=== PATIENT | female | born 1970 | race Caucasian/White ===

== ENCOUNTER 2018-07-28 10:28 | Day surgery (SDC) | payer BC ==
[2018-07-28] MEDS ORDERED: Lactated Ringers 1000 ML Bag* 1,000 ML IV ONE (10:32)
[2018-07-28] MEDS ORDERED: Morphine 10 MG/ML VIAL (1 ml) IV ONE (10:45)
[2018-07-28] MEDS ORDERED: Ondansetron INJ* 2 MG/ML VIAL IV ONE (10:45)
[2018-07-28] MEDS ORDERED: NS 0.9% 1000 ML** 1,000 ML IV SCH (10:45)
--- NOTE | 2018-07-28 10:56 | ED ---
Abdominal Pain/Female - HPI Summary HPI Summary: The patient is a 48 y/o F presenting to [facility] with a chief complaint of LLQ and left flank pain that radiates to the bilateral low back worse on the left side onset yesterday. In June 2018, she visited [facility] for abd pain and CT revealed intussusception. She has been following up with Dr. Hauser, who she notified of her symptoms today, and he recommended she come here where he will see her. She additionally c/o nausea with vomiting starting today. She last ate yesterday. The sharp pain is currently rated 8/10 in severity. There are no aggravating or alleviating factors. Hx of DM, controlled by medication, no hx of HTN but she notes that her BP has been increased over the last few days when she visited her PCP. - History of Current Complaint Chief Complaint: EDAbdPain Stated Complaint: DR REQUESTED PT TO MEET HIM AT [facility] PT Time Seen by Provider: 07/28/18 10:29 Hx Obtained From: Patient Hx Last Menstrual Period: tubal Onset/Duration: Sudden Onset, Lasting Hours - yesterday, Still Present Timing: Hours Severity Initially: Moderate Severity Currently: Severe Pain Intensity: 8 Pain Scale Used: 0-10 Numeric Location: Discrete At: LLQ, Flank - left Radiates: Yes Radiates to: Back - bilateral but worse on left Character: Sharp Aggravating Factor(s): Nothing Alleviating Factor(s): Nothing Associated Signs and Symptoms: Positive: Back Pain - bilateral but worse on left , Nausea, Vomiting Allergies/Adverse Reactions: Allergies Allergy/AdvReac Type Severity Reaction Status Date / Time No Known Allergies Allergy Verified 07/28/18 10:33 Home Medications: Home Medications metFORMIN* [Glucophage 1000 MG TAB *] 1,000 mg PO BID 07/28/18 [History Confirmed 07/28/18] PMH/Surg Hx/FS Hx/Imm Hx Endocrine/Hematology History: Reports: Hx Diabetes - II, Hx Thyroid Disease - no medication at this time, Hx Anemia Cardiovascular History: Denies: Hx Hypertension Respiratory History: Denies: Hx Asthma, Hx Chronic Obstructive Pulmonary Disease (COPD) GI History: Reports: Other GI Disorders - appendectomy Denies: Hx Ulcer History: Reports: Other Problems/Disorders - bilateral tubal ligation Musculoskeletal History: Reports: Hx Arthritis Sensory History: Denies: Hx Contacts or Glasses, Hx Hearing Aid Opthamlomology History: Denies: Hx Contacts or Glasses Neurological History: Reports: Hx Headaches - Surgical History Surgery Procedure, Year, and Place: zachary-en-y - 2009. tubal ligation. appe Hx Anesthesia Reactions: No Infectious Disease History: No Infectious Disease History: Denies: Hx Clostridium Difficile, Hx Hepatitis, Hx Human Immunodeficiency Virus (HIV), Hx of Known/Suspected MRSA, Hx Shingles, Hx Tuberculosis, History Other Infectious Disease, Traveled Outside the [place] in Last 30 Days - Family History Known Family History: Positive: Cardiac Disease, Diabetes, Other - Cancer - Social History Alcohol Use: Occasionally Substance Use Type: Reports: None Hx Tobacco Use: Yes Smoking Status (MU): Former Smoker Amount Used/How Often: quit 20 years ago Review of Systems Positive: Abdominal Pain - LLQ, Vomiting, Nausea Positive: flank pain - left Positive: Other - low back pain worse on left from abd pain All Other Systems Reviewed And Are Negative: Yes Physical Exam - Summary Physical Exam Summary: VITAL SIGNS: Reviewed. GENERAL: Patient is a well-developed and nourished female who is lying comfortable in the stretcher. Patient is not in any acute respiratory distress. HEAD AND FACE: Normocephalic and atraumatic. EYES: PERRLA, EOMI x 2, No injected conjunctiva. EARS: Hearing grossly intact. Ear canals and tympanic membranes are WNL. MOUTH: Oropharynx within normal limits. NECK: Supple, trachea is midline, no adenopathy, no JVD. CHEST: Symmetric, no tenderness at palpation LUNGS: Clear to auscultation bilaterally. No wheezing or crackles. CVS: RRR, S1 and S2 present, no murmurs or gallops appreciated. ABDOMEN: Soft, tender in the LLQ and left flank. No signs of distention. Positive bowel sounds. No rebound no guarding, and no masses palpated. No abdominal bruit or pulsations. EXTREMITIES: FROM in all major joints, no edema, no cyanosis or clubbing. NEURO: Alert and oriented x 3. No acute neurological deficits. Speech is normal. SKIN: Dry and warm Triage Information Reviewed: Yes Vital Signs On Initial Exam: Initial Vitals Temp Pulse Resp BP Pulse Ox 97.1 F 65 16 194/68 100 07/28/18 10:30 07/28/18 10:30 07/28/18 10:30 07/28/18 10:30 07/28/18 10:30 Vital Signs Reviewed: Yes Diagnostics - Vital Signs Vital Signs Temp Pulse Resp BP Pulse Ox 07/28/18 10:30 97.1 F 65 16 194/68 100 - Laboratory Result Diagrams: 07/28/18 12:15 07/28/18 12:15 Lab Statement: Any lab studies that have been ordered have been reviewed, and results considered in the medical decision making process. - Radiology CXR Radiology Interpretation Completed By: Radiologist Summary of Radiographic Findings: No acute cardiopulmonary process. ED physician has reviewed this report. - CT Abd/Pel CT CT Interpretation Completed By: Radiologist Summary of CT Findings: No obstruction. No hydronephrosis or nephrolithiasis. No acute noncontrast CT pathology of the visualized abdomen or pelvis. ED physician has reviewed this report. - EKG 10:44 Cardiac Rate: NL - 67 BPM EKG Rhythm: Sinus Rhythm EKG Comparison: No Significant Change - Similar to 12/22/16. Summary of EKG Findings: No ST elevations. Re-Evaluation - Re-Evaluation First Eval Re-Evaluation Time: 12:25 Change: Unchanged Comment: I spoke with the patient concerning how she is feeling now. Abdominal Pain Fem Course/Dx - Course Course Of Treatment: This patient is a 48-year-old female who presents to the emergency department with chief complaint of left lower quadrant and left flank pain. The patient was sent by Dr. Hauser for evaluation of an intussusception. The patient reports the pain is 9 out of 10. Mild nausea. In the ED course the patient was given IV fluids, Zofran for nausea, and morphine for pain. Blood work without any significant abnormality except for glucose of 104. EKG is a normal sinus rhythm without ST elevation. Chest x-ray shows no acute pathology. Abdominopelvic CT impression: No obstruction. No hydronephrosis or nephrolithiasis. No acute pathology of visualized abdomen or pelvis. Patient was assessed by Dr. Hauser and he accepted patient for admission. - Diagnoses Provider Diagnoses: Intussusception, Lower abdominal pain - Provider Notifications Discussed Care Of Patient With: Toyin Edward - surgery Time Discussed With Above Provider: 10:50 Instructed by Provider To: Other - I consulted with Dr. Edward, surgery, at concerning patients situation and future consultation with Dr. Hauser, who will come see the patient in the ED. At 11:45, Dr. Edward told us that Dr. Hauser would be coming to talk to the patient soon. Dr. Hauser is in the ED to see the patient at 12:10. Discharge - Sign-Out/Discharge Documenting (check all that apply): Patient Departure - Patient is admitted to [facility] for further care. All imaging exams completed and their final reports reviewed: Yes Patient Received Moderate/Deep Sedation with Procedure: No - Discharge Plan Condition: Stable Disposition: ADMITTED TO [facility] Referrals: El TORRES,Heide Ching [Primary Care Provider] - - Billing Disposition and Condition Condition: STABLE Disposition: Admitted to [facility] - Attestation Statements Document Initiated by Umesh: Yes Documenting Scribe: Lee Ann Ch Provider For Whom Umesh is Documenting (Include Credential): Dr. Carlos Urbina MD Scribe Attestation: Lee Ann Beckham scribed for Dr. Carlos Urbina MD on 07/28/18 at 1330. Scribe Documentation Reviewed: Yes Provider Attestation: The documentation as recorded by the Lee Ann alicia accurately reflects the service I personally performed and the decisions made by me, Dr. Carlos Urbina MD Status of Scribzahida Document: Ready
--- OUTSIDE RECORDS SUMMARY | 2018-07-28 10:58 | XMS REPORT | Continuity of Care Document ---
:1970 External Reference #:[id number] Author Name Opal Vigil Care Team Providers Name Role Phone Heide Gallegos MD Primary Care Physician Unavailable Payers Date Identification Numbers Payment Provider Subscriber Expires: 2016 Policy Number: [id number] Drew Brown PayID: [id number] [address] [place] [address] Policy Number: [id number] [facility] Jaleesa Brown PayID: [id number] [address] [address] [place] [address] Advance Directives Description No Information Available Problems Description No Information Family History Date Family Member(s) Observation Comments Father Diabetes Type II Father Renal Cell Cancer Mother due to Diabetes () Siblings 2 1 brother, - at age 43 ID, hx of CKD and diabetes, 1 sister Social History Type Date Description Comments Sex Unknown Marital Status Lives With Lives With Children ETOH Use Denies alcohol use Tobacco Use Start: Unknown End: Patient is a former smoker quit 1997 Unknown Recreational Drug Use Denies Drug Use Smoking Status Reviewed: 07/20/18 Patient is a former smoker quit 1997 Exercise Type/Frequency Does not exercise Allergies, Adverse Reactions, Alerts Description No Known Drug Allergies Medications Medication Date Status Form Strength Qnty SIG Indications Ordering Provider Metformin HCL / Active Tablets ER 1000mg 1 by mouth Unknown ER (Mod) 0000 24HR twice a day Multivitamin & / Active Liquid 1 teaspoon Unknown Mineral 0000 once a day Magnesium 00// Active Capsules otc once a Unknown 0000 day Novofine / Active Misc 32G X 6 mm use every Unknown 0000 day or as directed Victoza / Hx Solution 18mg/3ML inject Unknown 0000 - Pen-Inject 1.8mg 07/19/ daily once 2019 daily Microgestin / Hx Tablets 1.5-30mg-m 1 by mouth Unknown 1.5 0000 - cg every day 2018 Immunizations Description No Information Available Vital Signs Date Vital Result Comment 07/20/2018 9:47am Height 63 inches 5'3" Weight 196.00 lb w/ shoes Heart Rate 73 /min BP Systolic Sitting 156 mmHg BP Diastolic Sitting 98 mmHg BMI (Body Mass Index) 34.7 kg/m2 Results Description No Information Available Procedures Description No Information Available Encounters Type Date Location Provider Dx Diagnosis Office Visit 12/23/2016 Surgical Toyin Zhu R10.12 Left upper quadrant 7:00a [facility] pain [address] Crew Member Office Visit 12/22/2016 Surgical Kingsley Ramey K56.1 Intussusception 7:00a [facility] Plan of Treatment 07/20/2018 - Stone Grossman MDE04.2 Nontoxic multinodular goiterNew Xrays:US Thyroid, Scheduled: 07/15/19Follow up:return in 1 year after ultrasoundInstructions:1. Return in 1 year for ultrasound and follow-up visit. 2. Recheck thyroid function tests only if symptoms worsen.Z98.84 Bariatric surgery [id number] Type 2 diabetes mellitus with hyperglycemia
[2018-07-28 12:38] LABS: ABS Basophils 0 10^3/ul (0-0.2); ABS Eosinophils 0.1 10^3/ul (0-0.6); ABS Lymphocytes 1.8 10^3/ul (1.0-4.8); ABS Monocytes 0.2 10^3/ul (0-0.8); ABS Neutrophils 3.2 10^3/ul (1.5-7.7); ABS Nucleated RBC 0 10^3/ul; Eosinophil % 1.8 %; Hematocrit 40 % (33-41); Hemoglobin 12.9 g/dL (12.0-16.0); Lymphocyte % 33.6 %; Mean Corpuscular HGB Conc 32 g/dL (31-36); Mean Corpuscular Hemoglobin 28 pg (27-31); Mean Corpuscular Volume 88 fL (80-97); Mean Platelet Volume 9.2 fL (7.4-10.4); Nucleated Red Blood Cells % 0.1; Platelet Count 260 10^3/uL (150-450); Red Blood Count 4.57 10^6 /uL (3.70-4.87); Red Cell Distribution Width 14 % (10.5-15); White Blood Count 5.5 10^3/uL (3.5-10.8)
[2018-07-28 12:41] LABS: Albumin 4.2 g/dL (3.2-5.2); Anion Gap 10 mmol/L (2-11); CO2 Carbon Dioxide 23 mmol/L (22-32); Calcium 9.3 mg/dL (8.6-10.3); Chloride 105 mmol/L (101-111); Sodium 138 mmol/L (135-145)
[2018-07-28 12:47] LABS: ALT 13 U/L (7-52); AST 18 U/L (13-39); Albumin/Globulin Ratio 1.3 (1-3); Alkaline Phosphatase 64 U/L (34-104); BUN/Creatinine Ratio 17.9 (8-20); Blood Urea Nitrogen 10 mg/dL (6-24); C Reactive Protein < 1.00 mg/L (<8.01); EGFR Non-African American 116.5 (>60); Globulin 3.3 g/dL (2-4); Glucose 108 mg/dL (70-100); Total Protein 7.5 g/dL (6.4-8.9)
[2018-07-28] MEDS ORDERED: ceFAZolin 2 GM in NS PREMIX(*) 2 GM/100 ML BAG IVPB ONE (13:00)
[2018-07-28] MEDS ORDERED: Sugammadex * 200 MG/2 ML VIAL IV PUSH ONE (13:09)
[2018-07-28] MEDS ORDERED: Rocuronium* 10 MG/ML VIAL ONE ×2 (13:09→14:36)
[2018-07-28] MEDS ORDERED: Succinylcholine* 20 MG/ML 10 ML VIAL ONE (13:09)
[2018-07-28] MEDS ORDERED: Lidocaine 2% PF * 5 ML VIAL ONE (13:10)
[2018-07-28] MEDS ORDERED: fentaNYL* 50 MCG/ML 2 ML VIAL (100 MCG VIAL) ONE ×3 (13:10→15:44)
[2018-07-28] MEDS ORDERED: Propofol* 10 MG/ML 20 ML BTL ONE (13:10)
[2018-07-28] MEDS ORDERED: Ondansetron INJ* 2 MG/ML VIAL ONE (13:10)
[2018-07-28] MEDS ORDERED: Metoclopramide IV* 5 MG/ML 2 ML VIAL ONE (13:14)
[2018-07-28] MEDS ORDERED: Bupivacaine 0.25% W/EPI* 10 ML SDV ONE (13:21)
[2018-07-28] MEDS ORDERED: Famotidine IV* 10 MG/ML 2 ML (20 mg) ONE (13:23)
[2018-07-28] MEDS ORDERED: Scopolamine 1.5 mg* PATCH ONE (13:23)
--- NOTE | 2018-07-28 13:30 | PN ---
Progress Note - Progress Note Date of Service: 07/28/18 Note: PREOP NOTE: This is a 48 yo F know to me from recent visit at [facility] where she presented for evaluation of recurrent intussusception of SB s/p LRYGB in 2007 in [place]. She was admitted at [facility] in 2016 and was seen at [facility] in Jun 2018 for the same issue. CT scans at the time were suggestive of intussusception a the JJ anastamosis. At the time I saw her on 07/26, she had no significant pain and I felt evaluation for nephrolithiasis was warranted. She reports no hematuria or dysuria at this time. Her pain is worse since yesterday and is in bilateral flanks and associated with nausea. She has no fever. She was directed to the ER today when she called [facility] for advice. She has normal labs and noncontrast CT of the abd/pel showed no kidney stones. At this time I have recommended a diagnostic laparoscopy. I discussed the procedure, indications, risks, benefits and alternatives with the patient, including the option of no treatment. Risks have been explained including, not limited to: bleeding, infection, pain, scarring, blood clot, pneumonia, visceral injury, need for laparotomy, and risks of general anesthesia. All questions have been answered. She states understanding and agrees to proceed.
--- NOTE | 2018-07-28 13:32 | HP ---
CC: Dr. Carlos Hauser; Dr. Heide Gallegos at [facility]* PREOPERATIVE HISTORY AND PHYSICAL: DATE OF ADMISSION: 07/28/18 ATTENDING SURGEON: Dr. Carlos Hauser* (dictated by Toyin Edward NP). This patient was seen in [facility] Emergency Department on 07/28/18. CHIEF COMPLAINT: Worsening abdominal pain. HISTORY OF PRESENT ILLNESS: The patient is a 48-year-old female who is status post laparoscopic gastric bypass in May 2015 in [place]. She had an admission to [facility] December 2016 with possible intussusception of the jejunojejunostomy and no surgical intervention was indicated at that time. She was discharged home on clear liquids and omeprazole and her diagnosis was thought to be gastroenteritis. More recently, she saw Dr. Hauser at [facility] on 07/26/18, complaining of left-sided abdominal pain with some radiation to the back. Dr. Hauser planned to obtain further testing, but the patient called today stating that her abdominal pain was much worse and was radiating to her back and was rated 9/10. She has associated nausea and had 1 episode of vomiting at home. She reports that her abdominal pain is on both right and left mid abdomen, left greater than right, and the pain radiates into both flank regions. She denies any dysuria; her last bowel movement was 2 days ago. She denies any diarrhea; she is a type 2 diabetic and her fingerstick blood sugar this morning at home was 149; she states that one her children is homesick with a temperature of 104. A noncontrast CT of the abdomen and pelvis has been ordered as well as CBC, comprehensive metabolic profile, lactic acid, and CRP and we are awaiting those results. She last ate solids at 7 p.m. yesterday and last oral fluids was 8 ounces of water at 10 o'clock this morning. PAST MEDICAL HISTORY: Significant for: 1. Morbid obesity. She states that her highest weight was 275 pounds and currently she weighs 192 pounds. 2. Type 2 diabetes. 3. Iron deficiency anemia. 4. Hypothyroidism and/or thyroid nodule. PAST SURGICAL HISTORY: 1. Laparoscopic Miguel Ángel-en-Y gastric bypass in [place], 2015. 2. Laparoscopic appendectomy [place] [address] Hauser. 3. section x2. 4. Tubal ligation. CURRENT MEDICATIONS: 1. Metformin 1000 mg p.o. b.i.d. and she did take a dose at 4 o'clock this morning. 2. Multivitamin and mineral combination daily. 3. Magnesium supplement daily. 4. Glucosamine supplement daily. ALLERGIES: No known drug allergies. FAMILY HISTORY: Negative for anesthesia complications, bleeding tendencies, or clotting disorders. SOCIAL HISTORY: She is and has 2 older grown children and currently has foster children; she is a student; she quit smoking around age 20 and denies the use of tobacco or other recreational drugs. REVIEW OF SYSTEMS: Constitutional: No fevers at home. No excessive fatigue. No unintended weight loss. Cardiovascular: No chest pain, palpitations, or history of heart attack or heart murmur. Respiratory: No history of asthma. No chronic cough or shortness of breath. Gastrointestinal: As described in history of present illness. No additions. Genitourinary: No dysuria. No history of kidney stones. SURGICAL GARMENT INSPECTOR: Breast exam and mammogram done within the past 2 years. No problems reported. Pelvic: Exam has been within the last 2 years with normal Pap smear at that time and no interval problems reported; last menstrual period April 2018; she is status post tubal ligation. Musculoskeletal: Persistent chronic knee pain. Endocrine: Type 2 diabetes. Fingerstick this morning at home was 149 and in the emergency department fingerstick was 104. General: No history of deep vein thrombosis or pulmonary embolism. No previous anesthesia complications. No history of blood transfusions. PHYSICAL EXAMINATION GENERAL SURVEY: The patient is a 48-year-old overweight female in no acute distress. VITAL SIGNS: Height 5 feet 3 inches, weight 192 pounds. Body mass index 33.7. Blood pressure 164/80, pulse 60 and regular, respiratory rate 18, temperature 98 tympanic, and O2 saturation on room air 100%. HEENT: Benign. NECK: Supple. No cervical lymphadenopathy. LUNGS: Breath sounds bilaterally clear and equal. HEART: Regular rate and rhythm. No murmurs or rubs appreciated. ABDOMEN: Well-healed surgical scars, hypoactive bowel sounds. Nondistended. Soft; tender to palpation in both midabdominal regions left greater than right. No guarding. No obvious masses. BACK: No CVA tenderness. MUSCULOSKELETAL: Full range of motion. No edema or skin ulcerations. NEUROLOGIC: Alert and oriented x3, cooperative; she did have a brief episode in the emergency department where she felt like she was going to blackout, but she remained conscious. Her blood sugar at that time was 104 and the episode quickly resolved. SKIN: Warm, dry, intact. IMPRESSION: Persistent abdominal pain radiating to her back bilaterally, status post laparoscopic gastric bypass and history of intussusception on previous admission in 2017. PLAN: Noncontrast CT of the abdomen and pelvis has been done and reviewed by Dr. Hauser. We are awaiting lab tests. She is being resuscitated with IV fluids and kept n.p.o. She will possibly go to the OR today for diagnostic laparoscopy and further planning will be by Dr. Hauser. TIME SPENT: Seventy-five minutes with greater than 50% in [id number] history taking and coordination of care. NILSA EDWARD NP [id number]/CPS #: [id number] ANA
[2018-07-28] MEDS ORDERED: Ketorolac INJ* 30 MG/ML 1 ML VIAL ONE (14:24)
[2018-07-28] MEDS ORDERED: HYDROmorphone INJ1* 1 MG/ML SYRINGE IV PRN (15:23)
[2018-07-28] MEDS ORDERED: fentaNYL* 50 MCG/ML 2 ML VIAL (100 MCG VIAL) IV PRN (15:23)
[2018-07-28] MEDS ORDERED: Naloxone* 0.4 MG/ML 1 ML VIAL IV PRN (15:23)
[2018-07-28] MEDS ORDERED: DiMENhydriNATE IV* 50 MG/ML VIAL IV PUSH PRN (15:23)
--- NOTE | 2018-07-28 15:39 | OP ---
Operative Report - Blank - Operative Report Date of Operation: 07/28/18 Note: Brief Operative Note Preop Dx: Possible intussusception Postop Dx: intraabdominal adhesions; closure of internal hernia Procedure: diagnostic laparoscopy; lysis of adhesions; closure of internal hernia Anesthesia: GET Surgeon: Analisa Security Sales Consultant: [facility] Fluids: 1000 ml RL EBL: < 20 ml Specimen: none Drains: none Findings: dictated
[2018-07-28 17:04] VITALS: BP 127/69
--- NOTE | 2018-07-28 21:08 | OP ---
CC: Heide Gallegos MD; [facility] * DATE OF OPERATION: 07/28/18 - [facility] DATE OF : 74 SURGEON: Carlos Hauser MD. EMBROIDERY ASSISTANT: [facility]. ANESTHESIOLOGIST: Raheem Carrizales MD. ANESTHESIA: General endotracheal. PRE-OP DIAGNOSES: Bilateral flank pain and abdominal pain, status post laparoscopic Miguel Ángel-en-Y gastric bypass. POST-OP DIAGNOSES: Bilateral flank pain and abdominal pain, status post laparoscopic Miguel Ángel-en-Y gastric bypass and intraperitoneal adhesions. OPERATIVE PROCEDURE: Laparoscopy. Laparoscopic lysis of adhesions. Suture closure of internal hernia. ESTIMATED BLOOD LOSS: Minimal. IV FLUIDS: Crystalloids. SPECIMENS: None. DRAINS: None. COMPLICATIONS: None. COUNTS: Instrument, needle, and sponge count correct. DESCRIPTION OF PROCEDURE: The patient was brought to the operating room and placed on the table supine. Sequential compression devices were placed on both lower extremities. General anesthesia was administered. She was administered appropriate intravenous antibiotics. She was prepped and draped in the usual sterile fashion. A time-out was performed. Local anesthetic was infiltrated into skin and soft tissue prior to making each incision. Entry into the abdomen was through an infraumbilical vertical incision using an open technique. After accessing the peritoneal cavity, a 12- mm trocar was placed. Carbon dioxide was insufflated to a pressure of 15 mmHg. Under direct visualization, 5-mm trocars were placed in the left lower quadrant and right upper quadrant. Inspection of the abdominal cavity revealed normal-appearing small bowel with no evidence of abnormal dilation. Normal- appearing liver and gallbladder. There was omental adhesion to the lower midline of the abdomen. LigaSure was used to lyse the adhesions of the omentum to the anterior midline completely freeing this. The exploration then proceeded with identification of the gastric pouch and identification of the gastrojejunal anastomosis. This appeared normal. The Miguel Ángel limb was followed distally to the jejunojejunostomy. The adhesions of omentum and and transverse colon and mesentery to this area were taken down sharply. Clear visualization of the jejunojejunostomy did not reveal any evidence of intussusception. The bowel was run proximally to the ligament of Treitz along the course of the bilio-pancreatic limb and no abnormalities were identified there. There did appear to be a small internal hernia defect between the mesentery of the jejunum at the jejunojejunostomy and the transverse colon. There was no bowel within this area, however. The small bowel was run distally from the jejunojejunostomy to the ileocecal valve and back again. The appendix was noted to be absent. Gallbladder was inspected and noted to be normal. No abnormal dilation or masses noted within the small intestine. At this point, it was elected to close the previously mentioned internal hernia suturing the jejunum to the peritoneum of the transverse colon mesentery. This was performed using 3 [id number]-yz-dydre sutures with 2-0 silk. At this point, ports were removed under direct visualization. There was some bleeding from the left lower quadrant 5-mm port site and therefore an Endo Close was used with 0 Vicryl to close the incision and achieve hemostasis. Remaining ports were removed uneventfully. Infraumbilical wound was closed with 0 Vicryl in [id number] fashion to approximate the fascia. Skin incisions were closed with 4-0 Monocryl in subcuticular fashion. Steri-Strips were applied. The patient tolerated the procedure well. The patient was extubated uneventfully, transferred to recovery room in stable condition. [id number] #: [id number] [facility]
== END 2018-07-28 17:09 | disposition home or self-care (01) ==
LOC: OR 10:28
PROVIDERS: ATTEND Surgery
DX: K66.0 Peritoneal adhesions (postprocedural) (postinfection) (principal); K45.8 Other specified abdominal hernia without obstruction or gangrene; R10.9 Unspecified abdominal pain; R11.2 Nausea with vomiting, unspecified; Z98.84 Bariatric surgery status; E11.9 Type 2 diabetes mellitus without complications; Z79.84 Long term (current) use of oral hypoglycemic drugs; R94.31 Abnormal electrocardiogram [ECG] [EKG]; Z87.891 Personal history of nicotine dependence
CPT/HCPCS: 36415; 71045; 74176; 80053; 85025; 86140; 93005; 99284; A9270-GY; J0330; J0690; J1885; J2270; J2405; J2704; J2765; J3010

== ENCOUNTER 2018-12-19 09:15 | Emergency (ER) | payer BC ==
[2018-12-19 09:56] LABS: ABS Eosinophils 0.1 10^3/ul (0-0.6); ABS Lymphocytes 2.3 10^3/ul (1.0-4.8); ABS Monocytes 0.4 10^3/ul (0-0.8); ABS Neutrophils 4.5 10^3/ul (1.5-7.7); Eosinophil % 1.1 %; Hematocrit 40 % (35-47); Hemoglobin 13.5 g/dL (12.0-16.0); Lymphocyte % 31.6 %; Mean Corpuscular HGB Conc 34 g/dL (31-36); Mean Corpuscular Hemoglobin 31 pg (27-31); Mean Corpuscular Volume 90 fL (80-97); Mean Platelet Volume 9.2 fL (7.4-10.4); Nucleated Red Blood Cells % 0.1; Platelet Count 286 10^3/uL (150-450); Red Blood Count 4.37 10^6 /uL (3.70-4.87); Red Cell Distribution Width 16 % (10-15); White Blood Count 7.3 10^3/uL (3.5-10.8)
[2018-12-19 10:03] LABS: INR 0.94 (0.82-1.09)
[2018-12-19 10:19] LABS: Albumin/Globulin Ratio 1.3 (1-3); BUN/Creatinine Ratio 21.3 (8-20); Calcium 8.7 mg/dL (8.6-10.3); EGFR African American 127.8 (>60); EGFR Non-African American 105.6 (>60); Globulin 3.1 g/dL (2-4); Potassium 3.9 mmol/L (3.5-5.0); Total Bilirubin 0.3 mg/dL (0.2-1.0); Total Protein 7.1 g/dL (6.4-8.9)
--- NOTE | 2018-12-19 11:23 | ED ---
HPI Chest Pain - HPI Summary HPI Summary: This pt is a 48 Y/O F presenting to [facility] accompanied by her with a CC of midsternal CP. She states that the CP has been present since 12/15/18 but it worsened today when it radiated into her L arm and L neck since 0800 this morning. 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 She stated that the pain is described as tightness and electric and is rated a 5/10 in severity. She states that she has had a recent stress increase at home. She stated that she has been shaky and anxious at home. She denies any SOB, palpitations, N/V, abdominal pain, fevers, headaches, and weakness. She stated no alleviating factors. She has a pertinent FHx of diabetes type 1, and her mother had a NY at 38 Y/O. She was Dx with anxiety by Dr. De La Cruz and started on Celexa 2 weeks ago. She also stated that she has an overactive thyroid. - History of Current Complaint Chief Complaint: EDChestPainROMI Time Seen by Provider: 12/19/18 09:39 Hx Obtained From: Patient Hx Last Menstrual Period: tubal Onset/Duration: Started Days Ago - 4, Still Present, Worse Since - this morning at 0800 Timing: Constant Initial Severity: Mild Current Severity: Moderate Pain Intensity: 5 Pain Scale Used: 0-10 Numeric Chest Pain Location: Mid Sternal Chest Pain Radiates: Yes Chest Pain Radiates To:: Arm - L, Neck - L Character: Tightness, Other: - electric Aggravating Factor(s): Exertion, Other: - recent stress, anxiety Alleviating Factor(s): Nothing Associated Signs and Symptoms: Positive: Negative - headaches, Chest Pain, Anxiety, Recent Stress, Numbness - L arm. Negative: Weakness, Shortness of Breath, Fever, Nausea, Palpitations, Abdominal Pain, Vomiting - Risk Factors AMI/ACS Risk Factors: Family History - Diabetes, NY in mother at 38 Y/O - Additional Pertinent History Primary Care Physician: [id number] - Allergy/Home Medications Allergies/Adverse Reactions: Allergies Allergy/AdvReac Type Severity Reaction Status Date / Time No Known Allergies Allergy Verified 12/19/18 09:39 Home Medications: Home Medications Citalopram Hydrobromide [Citalopram HBr] 1 tab PO DAILY 12/19/18 [History Confirmed 12/19/18] Iferex 150 Forte Capsule 1 tab PO DAILY 12/19/18 [History Confirmed 12/19/18] PMH/Surg Hx/FS Hx/Imm Hx Previously Healthy: Yes Endocrine/Hematology History: Reports: Hx Diabetes - II, Hx Thyroid Disease - no medication at this time, Hx Anemia Cardiovascular History: Denies: Hx Hypertension Respiratory History: Denies: Hx Asthma, Hx Chronic Obstructive Pulmonary Disease (COPD) GI History: Reports: Other GI Disorders - appendectomy Denies: Hx Ulcer History: Reports: Other Problems/Disorders - bilateral tubal ligation Musculoskeletal History: Reports: Hx Arthritis Sensory History: Denies: Hx Contacts or Glasses, Hx Hearing Aid Opthamlomology History: Denies: Hx Contacts or Glasses Neurological History: Reports: Hx Headaches Psychiatric History: Reports: Hx Anxiety - Surgical History Surgery Procedure, Year, and Place: [email or web address] - 2008. tubal ligation. appe . Stress test before 2007, unknown exactly Hx Anesthesia Reactions: No - Immunization History Immunizations Up to Date: Yes Infectious Disease History: No Infectious Disease History: Denies: Hx Clostridium Difficile, Hx Hepatitis, Hx Human Immunodeficiency Virus (HIV), Hx of Known/Suspected MRSA, Hx Shingles, Hx Tuberculosis, History Other Infectious Disease, Traveled Outside the [place] in Last 30 Days - Family History Known Family History: Positive: None, Cardiac Disease, Diabetes, Other - Cancer - Social History Occupation: Unemployed, Works From/At Home Lives: With Family Alcohol Use: None Substance Use Type: Reports: None Hx Tobacco Use: Yes Smoking Status (MU): Former Smoker Amount Used/How Often: quit 20 years ago Review of Systems Negative: Fever Positive: Chest Pain - mid-sternal Negative: Shortness Of Breath Negative: Abdominal Pain, Vomiting, Nausea Positive: Other - L arm and L neck radiated pain Negative: Headache, Weakness All Other Systems Reviewed And Are Negative: Yes Physical Exam - Summary Physical Exam Summary: Constitutional: Well-developed, Well-nourished, Alert. (-) Distressed Skin: Warm, Dry HENT: Normocephalic; Atraumatic Eyes: Conjunctiva normal Neck: Musculoskeletal ROM normal neck. (-) JVD, (-) Stridor, (-) Nuchal rigidity Cardio: Rhythm regular, rate normal, Heart sounds normal; Intact distal pulses; Radial pulses are 2+ and symmetric. (-) Murmur Pulmonary/Chest wall: Effort normal. (-) Respiratory distress, (-) Wheezes, (-) Rales Abd: Soft, (-) tenderness, (-) Distension, (-) Guarding, (-) Rebound Musculoskeletal: (-) Edema Lymph: (-) Cervical adenopathy Neuro: Alert, Oriented x3 Psych: Mood and affect Normal Triage Information Reviewed: Yes Vital Signs On Initial Exam: Initial Vitals Temp Pulse Resp BP Pulse Ox 97.7 F 58 18 144/57 100 12/19/18 09:24 12/19/18 09:24 12/19/18 09:24 12/19/18 09:24 12/19/18 09:24 Vital Signs Reviewed: Yes Diagnostics - Vital Signs Vital Signs Temp Pulse Resp BP Pulse Ox 12/19/18 10:39 55 23 155/86 98 12/19/18 10:09 58 17 157/89 98 12/19/18 10:00 59 5 97 12/19/18 09:48 53 14 142/83 97 12/19/18 09:42 55 16 142/83 97 12/19/18 09:39 57 21 142/87 97 12/19/18 09:35 61 19 98 12/19/18 09:24 97.7 F 58 18 144/57 100 - Laboratory Lab Results: Lab Results 12/19/18 12/19/18 12/19/18 Range/Units 09:43 09:43 09:43 WBC 7.3 (3.5-10.8) 10^3/uL RBC 4.37 (3.70-4.87) 10^6 /uL Hgb 13.5 (12.0-16.0) g/dL Hct 40 (35-47) % MCV 90 (80-97) fL MCH 31 (27-31) pg MCHC 34 (31-36) g/dL RDW 16 H (10-15) % Plt Count 286 (150-450) 10^3/uL MPV 9.2 (7.4-10.4) fL Neut % (Auto) 61.1 % Lymph % (Auto) 31.6 % Pen[place]ton % (Auto) 5.6 % Eos % (Auto) 1.1 % Baso % (Auto) 0.6 % Absolute Neuts (auto) 4.5 (1.5-7.7) 10^3/ul Absolute Lymphs (auto) 2.3 (1.0-4.8) 10^3/ul Absolute Monos (auto) 0.4 (0-0.8) 10^3/ul Absolute Eos (auto) 0.1 (0-0.6) 10^3/ul Absolute Basos (auto) 0.0 (0-0.2) 10^3/ul Absolute Nucleated RBC 0.0 10^3/ul Nucleated RBC % 0.1 INR (Anticoag Therapy) 0.94 (0.82-1.09) Sodium 137 (135-145) mmol/L Potassium 3.9 (3.5-5.0) mmol/L Chloride 106 (101-111) mmol/L Carbon Dioxide 23 (22-32) mmol/L Anion Gap 8 (2-11) mmol/L BUN 13 (6-24) mg/dL Creatinine 0.61 (0.51-0.95) mg/dL Est GFR ( Amer) 127.8 (>60) Est GFR (Non-Af Amer) 105.6 (>60) BUN/Creatinine Ratio 21.3 H (8-20) Glucose 121 H (70-100) mg/dL Calcium 8.7 (8.6-10.3) mg/dL Total Bilirubin 0.30 (0.2-1.0) mg/dL AST 16 (13-39) U/L ALT 18 (7-52) U/L Alkaline Phosphatase 61 (34-104) U/L Troponin I 0.00 (<0.04) ng/mL Total Protein 7.1 (6.4-8.9) g/dL Albumin 4.0 (3.2-5.2) g/dL Globulin 3.1 (2-4) g/dL Albumin/Globulin Ratio 1.3 (1-3) TSH Pending Result Diagrams: 12/19/18 09:43 12/19/18 09:43 Lab Statement: Any lab studies that have been ordered have been reviewed, and results considered in the medical decision making process. - Radiology CXR Radiology Interpretation Completed By: Radiologist Summary of Radiographic Findings: No evidence for active cardiopulmonary disease. ED Physician has reviewed this report. - EKG 0918 Cardiac Rate: NL - 64 BPM EKG Rhythm: Sinus Rhythm ST Segment: Normal Ectopy: None Summary of EKG Findings: EKG at 0918 reveals normal sinus rhythm 64 BPM, nml axis, nml intervals. No STEMI. Q waves in V1 to V3. Interpreted by Dr. Lees at 0922 12/19/18. Re-Evaluation - Re-Evaluation First Eval Comment: second trop neg, outpatient stress test ordered. Patient feels comfortable going home and will return for worsening symptoms. Chest Pain Course/Dx - Course Course Of Treatment: 48-year-old female with a history of anxiety, strong family history of cardiac disease who presents with chest pain for 4 days. Physical exam of the well-appearing female. EKG sinus, chest x-ray negative, troponin has been normal. Chest Pain DDX: The patient is well appearing, with stable vitals. Given the patient's clinical presentation, highest on differential is atypical CP. Although less likely, differential also includes the following: --Pneumothorax: Equal breath sounds, story inconsistent since gradual onset of symptoms. CXR shows no evidence of pneumothorax. Unlikely. -- Cardiac tamponade: The history and physical are not concerning for tamponade. No Pulsus Paradoxus, no tachypnea. Unlikely. --Mediastinitis or esophageal rupture: The history is not consistent, as the patient has had no recent history of significant wretching, instrumentation, or mediastinal surgeries. Unlikely. --Aortic dissection: The patient does not describe the classical tearing chest pain radiating into the back, and the CXR does not show mediastinal widening or other signs of aortic dissection. Unlikely. --PE: Vitals wnl (not hypoxic, tachycardic or tachypneic). --ACS: The initial EKG shows no ischemic changes. The initial troponin is not elevated. Heart score - HEART Score. Based on a HEART score of 2 the patient has a low risk (<2% chance ) of major adverse cardiac event within the next 6 weeks. I explained to the patient that based on the work-up today, her risk of heart attack is low and that he/she will be discharged with outpatient follow-up. Strict return precautions were discussed regarding worsening chest pain, new / atypical pain, shortness of breath, or any other serious concerns. Patient endorsed understanding and has no questions at this time. Source --. Freedom BE, Six AJ , Marito BEVERLY, Trevor MA, Mast EG, Wiley A, Carolyne RF,. Carlos AJ, Baldomero R , Lio R, Wale SH, van Camila R, Jose TP, van asad Garrison F,. Erin MJ, Jg JM, Fabian AW, Cherry PA. A prospective validation of. the HEART score for chest pain patients at the emergency department. Int J. Cardiol. 2013 Feb 3;168(3):2153-8. 0-3: 2.5% risk of adverse cardiac event. In the HEART Score, these patients were discharged. (0.99% retrospective) (1.7% prospective). 4-6: 20.3% risk of adverse cardiac event, suggesting admission to the hospital. 11.6% (16.6% prospective). =7: 72.7% risk of adverse cardiac event, suggesting early invasive measures with these patients. 65.2% (50.1% prospective). Will get outpatient stress after 2nd troponin can be discharged to home - Chest Pain Differential Diagnosis/HQI/PQRI: Other: - atypical chest pain, pneumothorax, cardiac tamponade, - Diagnoses Provider Diagnoses: Chest pain Discharge - Sign-Out/Discharge Documenting (check all that apply): Patient Departure - discharge Patient Received Moderate/Deep Sedation with Procedure: No - Discharge Plan Condition: Stable Disposition: HOME Patient Education Materials: Angina (ED) Referrals: El TORRES,Heide Ching [Primary Care Provider] - 2 Days Additional Instructions: You were seen in the emergency department for chest pain. Your labs showed normal heart enzymes. Your EKG did not show any evidence of a heart attack You should be called for a stress test within a day. If any studies were not completed at the time of discharge you will be called with the relevant results. Please follow up with your primary care doctor in next 2-3 days and return to emergency department for worsening or concerning symptoms. - Billing Disposition and Condition Condition: STABLE Disposition: Home - Attestation Statements Document Initiated by Scribe: Yes Documenting Scribe: Mj Kerr Provider For Whom Scribe is Documenting (Include Credential): Des Lees MD Scribe Attestation: IMj, scribed for Des Lees MD on 12/19/18 at 1452. Scribe Documentation Reviewed: Yes Provider Attestation: The documentation as recorded by the scribeMj accurately reflects the service I personally performed and the decisions made by me, Des Lees MD Status of Scribe Document: Viewed
[2018-12-19 12:08] LABS: TSH (Thyroid Stimulating Horm) 1.09 mcIU/mL (0.34-5.60)
[2018-12-19 13:36] VITALS: BP 119/65
== END 2018-12-19 13:34 | disposition home or self-care (01) ==
LOC: ED 09:15
DX: R07.9 Chest pain, unspecified (principal); E11.9 Type 2 diabetes mellitus without complications; E07.9 Disorder of thyroid, unspecified; D64.9 Anemia, unspecified; F41.9 Anxiety disorder, unspecified; Z79.899 Other long term (current) drug therapy; Z87.891 Personal history of nicotine dependence
CPT/HCPCS: 36415; 71045; 80053; 84443; 84484; 85025; 85610; 93005; 99283